=== PATIENT | female | born 1985 | race Two or more races ===

== ENCOUNTER 2023-02-28 15:45 | Outpatient (REF) | payer OTHER, SELFPAY ==
[2023-03-01 11:28] LABS: CT PCR NOT DETECTED (Not Detect.); NG PCR NOT DETECTED (Not Detect.)
[2023-03-01 14:53] LABS: BV Int Neg Control Negative (Negative); BV Int Pos Control Positive (Positive)
== END 2023-02-28 15:46 | disposition home or self-care (01) ==
LOC: HO.CHCLNP 15:45
PROVIDERS: Visit Provider General Practice
DX: N76.0 Acute vaginitis (principal); Z20.2 Contact with and (suspected) exposure to infections with a predominantly sexual mode of transmission
CPT/HCPCS: 0353U; 87480; 87510; 87660

== ENCOUNTER 2023-03-21 16:36 | Outpatient (REF) | payer OTHER, SELFPAY | END 2023-03-21 16:37 | disposition home or self-care (01) | LOC: HO.LNP 16:36 | PROVIDERS: Visit Provider General Practice | DX: N76.0 Acute vaginitis (principal) | CPT/HCPCS: 81513 ==

== ENCOUNTER 2024-10-01 16:51 | Outpatient (REF) | payer OTHER, SELFPAY ==
--- OUTSIDE RECORDS SUMMARY | 2024-10-01 19:55 | XMS_ITS | Encounter Summary ---
Author Organization [employer] [facility] Address [address] [place] [address] 7 [place] [address] Care Team Providers Care Personal Care Assistant Name Role Phone Magalie Adrian MD Primary Care Provider [phone] Reason for Visit * Reason Onset Date Comments Appointment Request 11/27/2023 Encounter Details Date Type Department Care Team (Late Contact Info) Description 11/27/2023 Telephone [facility] MEDICINE [address] [place] [phone] Magalie Adrian MD [address] [place] [phone] Appointment Request Social History Tobacco Use Types Packs/Day Years Used Date Smoking Tobacco: Never Assessed Comments Unknown Sex and Gender Information Value Date Recorded Sex Assigned at Female 06/06/2022 10:16 AM EDT Legal Sex Female 10:16 AM EDT Gender Identity Female 06/06/2022 10:16 AM EDT Sexual Orientation Straight 06/06/2022 10 :16 AM EDT documented as of this encounter Miscellaneous Notes * Telephone Encounter - Connor Coleman - 11/27/2023 10:14 AM EDT Tc from pt requesting to schedule Pap smear appt. Pt didn't state any urgent concerns just overdue. Please contact pt at [phone]. documented in this encounter Plan of Treatment Upcoming Encounters Date Type Department Care Team ([facility] Contact Info) Description 11/04/2024 2:00 PM EDT Office Visit [facility] MEDICINE [address] [place] [phone] Sparkle Vegas MD [address] [place] [address] documented as of this encounter Visit Diagnoses Not on filedocumented in this encounter Care Teams Personal Care Assistant Relationship Specialty Start Date End Date Magalie Adrian MD [address] [place] [address] PCP - General Family Medicine 10/06/21 documented as of this encounter
--- OUTSIDE RECORDS SUMMARY | 2024-10-01 19:55 | XMS_ITS | Clinical Summary ---
Author Organization [employer] Address [address] [facility] [address] 7t [place] [address] Care Team Providers Care Farm Mechanic Apprentice Name Role Phone Magalie Adrian MD Primary Care Provider [phone] Allergies No known active allergies Active Problems Problem Noted Date Diagnosed Date Overweight (BMI 25.0-29.9) 11/30/2022 Assessment & Plan (11/30/2022 1:46 PM EDT): Will send lab screening, declined STI testing. Discussed calorie deficit, recommended reduction of 20-30% of maintenance calories; metallurgical inspector referral offered. Recommended to decrease soda and sugary beverage consumption. Recommended at least 20 g per meal of protein to assist with satiety. Recommended at least 150 min/week of moderate intensity exercise. Physical exam 11/30/2022 Assessment & Plan (11/30/2022 1:47 PM EDT): Pending pap smear. Health screening questions done, labs sent. Diet recommendations as above. Sacroiliitis 11/25/2022 Assessment & Plan (11/30/2022 1:46 PM EDT): Symptoms c/w sacroilitis, send to PT and chiropracter. Encounters Date Type Department Care Team Description 10/01/2024 2:45 PM EST Procedure Visit [facility] MEDICINE [address] [place] [address] Susan Brand CNM Cervical cancer screening (Primary Dx); Abnormal uterine bleeding; Screening examination for venereal disease 10/01/2024 Travel 08/20/2024 Telephone [facility] MED & PEDS [address] [place] [address] Magalie Adrian MD Nurse Triage from Last 3 Months Immunizations Name Administration Dates Next Due DTaP, 5 pertussis antigens 03/20/1990,,01/13/1986,09/30,1985 HPV, Quadrivalent 10/22/2010,03/31/2010,11/18/19 10 Hep B, Adolescent or Pediatric 09/05/2000,1997 Hep B, adult 09/29/2021 Hib (HbOC) 10/18/1989 IPV 10/28/1989, 7,02/12/1986,09/30,1985 MMR 09/05/1990,08/19/1986 Meningococcal MCV4P [id number] 09/29/2021 TD (adult), 2 Lf tetanus tox oid, preservative free, adsorbed 09/05/2000 Tdap 08/13/2014 Social History Tobacco Use Types Packs/Day Years Used Date Smoking Tobacco: Never Assessed Comments No Sex and Gender Information Value Date Recorded Sex Assigned at Female 06/06/2022 10:16 AM EDT Legal Sex Female 10:16 AM EDT Gender Identity Female 06/06/2022 10:16 AM EDT Sexual Orientation Straight 06/06/2022 10 :16 AM EDT Last Filed Vital Signs Vital Sign Reading Time Taken Comments Blood Pressure 114/69 10/01/2024 3:10 PM EST Pulse 71 10/01/2024 3:10 PM EST Temperature 36.6 ??C (97.8 ??F) 10/01/2024 3:10 PM ES T Respiratory Rate 20 10/01/2024 3:10 PM EST Oxygen Saturation 98% 10/01/2024 3:10 PM EST Inhaled Oxygen Concentration - - Weight 70.8 kg (156 lb) 10/01/2024 3:10 PM EST Height 157.5 cm (5' 2 ) 10/01/2024 3:10 PM EST Body Mass Index 28.53 10/01/2024 3:10 PM EST Plan of Treatment Upcoming Encounters Date Type Department Care Team (Late st Contact Info) Description 11/04/2024 2:00 PM EDT Office Visit [facility] MEDICINE [address] [place] [phone] Sparkle Vegas MD [address] [place] [address] Health Maintenance Due Date Last Done Comments Depression Screening 1985 HIV Screening 1985 SDOH Screening 1985 Alcohol/Substance Use Screening 1997 Tobacco Screening 1997 Hepatitis C Screening 2003 Pap Smear 2006 Cervical Cancer Screening 2015 HPV/Cotest 2015 COVID-19 Vaccine ( season) 2024 09/15/2021, 12/09/2020, 11/11/2020 Influenza Vaccine (#1) 2024 DTaP/Tdap/Td Vaccines (7 - Td or Tdap) 08/13/2024 08/13/2014, 09/05/2000, 03/20/1990, Additional history exists Family Planning (PISQ) 10/01/2025 10/01/2024 Zoster Vaccines (1 of 2) 2035 RSV Patients and Patients Aged 60 years or older (1 - 1-dose 75+ series) 2060 HIB Vaccines Completed 10/18/1989 IPV Vaccines Completed 10/28/1989, 04/1987, 02/12/1986, Additional history exists HPV Vaccines Completed 10/22/2010, 03/08, 11/17/2009 Hepatitis B Vaccines Completed 09/29/2021, 09/05/2000, 07/28/1998 Meningococcal Vaccine Aged Out 09/29/2021 No benjamin reyes eligible based on patient's age to complete this topic Hepatitis A Vaccines Aged Out No long er eligible based on patient's age to complete this topic Pneumococcal Vaccine: Pediatrics (0 to 5 Years) and At-Risk Patients (6 to 49) Years) Aged Out No longer eligible based on patient's age to complete this topic RSV under 20 months Aged Out No longe r eligible based on patient's age to complete this topic Rotavirus Vaccines Aged Out No longer eligible based on patient's age to complete this topic Procedures Procedure Name Priority Date/Time Associated Diagnosis Comments POCT , URINE Routine 10/01/2024 3:27 PM EST Abnormal uterine bleeding from Last 3 Months Results * POCT , urine manually resulted (10/01/2024 3:27 PM EST) Preg Test, Ur Negative Negative, Indeterminate, None Detected, Invalid, Specimen unsatisfactory for evaluation, Weakly Positive Urine 10/01/2024 3:27 PM EST Susan Brand CNM POINT OF CARE TEST ENTER/ EDIT ORDERABLES Final Result from Last 3 Months Insurance , [address] [address] Care Teams Farm Mechanic Apprentice Relationship Specialty Start Date End Date Magalie Adrian MD [address] [place] [phone] PCP - General Family Medicine 10/06/21
--- OUTSIDE RECORDS SUMMARY | 2024-10-01 19:55 | XMS_ITS | Encounter Summary ---
Author Organization [employer] [facility] Address [address] [place] [address] 7 [place] [address] Care Team Providers Care Soft Iron Inspector Name Role Phone Magalie Adrian MD Primary Care Provider [phone] Encounter Details Date Type Department Care Team (Latest Contact Info) Description 10/01/2024 Travel Social History Tobacco Use Types Packs/Day Years Used Date Smoking Tobacco: Never Assessed Comments No Sex and Gender Information Value Date Recorded Sex Assigned at Female 06/06/2022 10:16 AM EDT Legal Sex Female 10:16 AM EDT Gender Identity Female 06/06/2022 10:16 AM EDT Sexual Orientation Straight 06/06/2022 10 :16 AM EDT documented as of this encounter Plan of Treatment Upcoming Encounters Date Type Department Care Team (Late st Contact Info) Description 11/04/2024 2:00 PM EDT Office Visit [facility] MEDICINE [address] [place] [address] Sparkle Vegas MD [address] [place] [address] documented as of this encounter Visit Diagnoses Not on filedocumented in this encounter Care Teams Soft Iron Inspector Relationship Specialty Start Date End Date Magalie Adrian MD [address] [place] [address] PCP - General Family Medicine 10/06/21 documented as of this encounter
--- OUTSIDE RECORDS SUMMARY | 2024-10-01 19:55 | XMS_ITS | Encounter Summary ---
Author Organization [employer] [facility] Address [address] [place] [address] 7[address] [place] [address] Care Team Providers Care Tax Analyst Name Role Phone Magalie Adrian MD Primary Care Provider [phone] Reason for Visit * Reason Comments Gynecologic Exam Encounter Details Date Type Department Care Team (Latest Contact Info) Description 10/01/2024 2:45 PM EST Procedure Visit [facility] MEDICINE [address] [place], [place] [phone] Susan Brand CN [address] [place] [address] Cervical cancer screening (Primary Dx); Abnormal uterine bleeding; Screening examination for venereal disease Social History Tobacco Use Types Packs/Day Years Used Date Smoking Tobacco: Never Assessed Comments No Sex and Gender Information Value Date Recorded Sex Assigned at Female 06/06/2022 10:16 AM EDT Legal Sex Female 10:16 AM EDT Gender Identity Female 06/06/2022 10:16 AM EDT Sexual Orientation Straight 06/06/2022 10 :16 AM EDT documented as of this encounter Last Filed Vital Signs Vital Sign Reading [...] Mass Index 28.53 10/01/2024 3:10 PM EST documented in this encounter Progress Notes * Susan Brand CNM - 10/01/2024 2:45 PM EST Subjective Patient ID: Mayte Milner is a 39 y.o. female who presents for pap Per triage, notes newer onset frequent menses. LMP 2/ x 5-7d. Menses came early in August on 08/12,only bled x 3-4d. Had a lot of breast tenderness prior to that menses, which resolved. Previous normal menses 07/27 x 5-7d. Denies vasomotor symptoms. Was having urinary frequency, but this resolved after treatment for UTI. Last sexually active 2-3 weeks ago with former [facility] partner. Would like pap based STI testing, declines serum labs. Has tubal ligation. Happy with method. Pap NIL 08/2018. Gonorrhea/Chlamydia/trichomonas neg 02/2023. Review of Systems Genitourinary: Positive for menstrual problem. Negative for dyspareunia, dysuria, frequency, genital sores, hematuria, pelvic pain, urgency, vaginal bleeding, vaginal discharge and vaginal pain. No abnormal pap, no abnormal bleeding, no breast pain, no breast mass, no nipple discharge Objective BP 114/69 (BP Location: Left arm, Patient Position: Sitting, BP Cuff Size: Adult) Pulse 71 Temp97.8 ??F (36.6 ??C) (Temporal) Resp 20 Ht 5' 2 (1.575 m) Wt 156 lb (70.8 kg) SpO2 98% BMI 28.53 kg/m?? Physical Exam Constitutional: Appearance: Normal appearance. Chest: Breasts: Right: Normal. No swelling, bleeding, inverted nipple, mass, nipple discharge, skin change or tenderness. Left: Normal. No swelling, bleeding, inverted nipple, mass, nipple discharge, skin change or tenderness. Genitourinary: General: Normal vulva. Labia: Right: No rash, tenderness, lesion or injury. Left: No rash, tenderness, lesion or injury. Vagina: Normal. No signs of injury and foreign body. No vaginal discharge, erythema, tenderness, bleeding or lesions. Cervix: Friability present. No cervical motion tenderness, discharge, lesion, erythema, cervical bleeding or eversion. Uterus: Normal. Not enlarged and not tender. Adnexa: Right adnexa normal and left adnexa normal. Right: No mass, tenderness or fullness. Left: No mass, tenderness or fullness. Lymphadenopathy: Upper Body: Right upper body: No supraclavicular or axillary adenopathy. Left upper body: No supraclavicular or axillary adenopathy. Neurological: Mental Status: She is alert. Psychiatric: Mood and Affect: Mood normal. Behavior: Behavior normal. Assessment/Plan Diagnoses and all orders for this visit: Cervical cancer screening - Pap Smear Cotest today. Repeat 5 years if normal/HPV neg. Will contact with results. Abnormal uterine bleeding - POCT , urine manually resulted test negative today. Will r/o Gonorrhea/Chlamydia/trichomonas with pap based testing. Advised to track cycles. If early menses recurs, will check TSH and ultrasound. Screening examination for venereal disease - STI testing add on (NG, CT, Trich) documented in this encounter Plan of Treatment Upcoming Encounters Date Type Department Care Team (Late st Contact Info) Description 11/04/2024 2:00 PM EDT Office Visit [facility] MEDICINE [address] [place] [address] Sparkle Vegas MD [address] [place] [address] Scheduled Orders Name Type Priority Associated Diagnoses Orde r Schedule Pap Smear Pathology and Cytology Routine Cervical cancer screening Ordered: 10/01/2024 STI testing add on (NG, CT, Trich) Pathology and Cytology Routine Screening examination for venereal disease Ordered: 10/01/2024 documented as of this encounter Procedures Procedure Name Priority Date/Time Associated Diagnosis Comments POCT , URINE Routine 10/01/2024 3:27 PM EST Abnormal uterine bleeding documented in this encounter Results * POCT , urine manually resulted (10/01/2024 3:27 PM EST) Preg Test, Ur Negative Negative, Indeterminate, None Detected, Invalid, Specimen unsatisfactory for evaluation, Weakly Positive Urine 10/01/2024 3:27 PM EST Susan JEAN POINT OF CARE TEST ENTER/ EDIT ORDERABLES Final Result documented in this encounter Visit Diagnoses Diagnosis Cervical cancer screening- Primary Screening for malignant neoplasm of the cervix Abnormal uterine bleeding Unspecified disorder of menstruation and other abnormal bleeding from female genital tract Screening examination for venereal disease documented in this encounter Care Teams Tax Analyst Relationship Specialty Start Date End Date Magalie Adrian MD [address] [place] [address] PCP - General Family Medicine 10/06/21 documented as of this encounter
--- OUTSIDE RECORDS SUMMARY | 2024-10-01 19:55 | XMS_ITS | Encounter Summary ---
Author Organization [employer] [facility] Address [address] [place] [address] [address] [place] [address] Care Team Providers Care Obstetrical Tech Name Role Phone Magalie Adrian MD Primary Care Provider [phone] Encounter Details Date Type Department Care Team (Late Contact Info) Description 12/19/2022 Abstract [facility] MED & PEDS [address] [place] [address] Magalie Adrian MD [address] [place], [place] [phone] Social History Tobacco Use Types Packs/Day Years Used Date Smoking Tobacco: Never Assessed Comments Unknown Sex and Gender Information Value Date Recorded Sex Assigned at Female 06/06/2022 10:16 AM EDT Legal Sex Female 10:16 AM EDT Gender Identity Female 06/06/2022 10:16 AM EDT Sexual Orientation Straight 06/06/2022 10 :16 AM EDT COVID-19 Exposure Response Date Recorded In the last 10 days, have yo u been in contact with someone who was confirmed or suspected to have Coronavirus/COVID-19? No / Unsure 11/25/2022 1:52 PM EDT documented as of this encounter Plan of Treatment Upcoming Encounters Date Type Department Care Team (Late Contact Info) Description 11/04/2024 2:00 PM EDT Office Visit [facility] MEDICINE [address] [place], [place] [phone] Sparkle Vegas MD [address] [place], [place] [phone] documented as of this encounter Visit Diagnoses Not on filedocumented in this encounter Care Teams Obstetrical Tech Relationship Specialty Start Date End Date Magalie Adrian MD [address] [place] [address] PCP - General Family Medicine 10/06/21 documented as of this encounter
[2024-10-03 14:13] LABS: C. trachomatis RNA TMA NOT DETECTED (NOT DETECTED); N. gonorrhoeae RNA TMA NOT DETECTED (NOT DETECTED)
[2024-10-08 11:13] LABS: HPV Genotype 16 Negative (Negative); HPV Genotype 18 Negative (Negative); HPV High Risk Negative (Negative)
[2024-10-11 13:12] LABS: Trichomonas (NAAT) NOT DETECTED
== END 2024-10-01 16:52 | disposition home or self-care (01) ==
LOC: HO.HHCLNP 16:51
PROVIDERS: Visit Provider Advanced Practice Midwife
DX: Z12.4 Encounter for screening for malignant neoplasm of cervix (principal); Z11.3 Encounter for screening for infections with a predominantly sexual mode of transmission; Z11.51 Encounter for screening for human papillomavirus (HPV)
CPT/HCPCS: 87491; 87591; 87626; 87661; 88175